=== PATIENT | male | born 1960 | race Caucasian/White ===

== ENCOUNTER 2025-05-12 17:50 | Inpatient (IN) | payer OTHER ==
[~2025-05-12] VITALS: Ht 182.8 cm; Wt 85.8 kg
[2025-05-12 18:25] VITALS: BP 152/90
[2025-05-12 18:32] LABS: BASO # 0.0 10*3/uL (0.0-0.1); BASO % 0.3 % (0.0-1.0); EOS # 0.3 10*3/uL (0.0-0.4); EOS % 2.4 % (1.0-4.0); MEAN CELL VOLUME 93.8 fl (80.0-94.0); MEAN CORPUSCULAR HGB 31.2 pg (27.0-31.0); MEAN PLATELET VOLUME 11.6 fl (9.6-12.3); MONO # 0.6 10*3/uL (0.1-1.0); MONO % 5.8 % (3.0-9.0); NEUT # 8.3 10*3/uL (2.3-7.9); NEUT % 76.2 % (47.0-73.0); NUCLEATED RED BLOOD CELL 0.0 % (0.0-0.0); NUCLEATED RED BLOOD CELL 0.0 10*3/uL (0.0-0.0); PLATELET COUNT AUTOMATED 170 10*3/uL (130-400); RED CELL DISTRI WIDTH 14.4 % (0-14.5)
[2025-05-12 18:54] LABS: BILIRUBIN 2+ (Negative); BLOOD Negative (Negative); CLARITY Clear (Clear); COLOR Dark Yellow (Yellow); KETONE 3+ (Negative); LEUKO ESTERASE 1+ (Negative); NITRITE Negative (Negative); PH 6.0 (4.5-8.0); SPECIFIC GRAVITY 1.025 (1.001-1.030); UROBILINOGEN 1.0 E.U./dl (0.0-1.0)
[2025-05-12 19:00] LABS: BUN 14 mg/dl (9-23)
[2025-05-12 19:01] LABS: URINE AMPHETAMINES Negative (1000ng/ml); URINE BARBITURATES Negative (200ng/ml); URINE BENZODIAZEPINES Negative (200ng/ml); URINE CANNABINOIDS (THC) Negative (50ng/ml); URINE COCAINE Negative (300ng/ml); URINE METHADONE Negative (300ng/ml); URINE OPIATES Negative (300ng/ml); URINE PHENCYCLIDINE Negative (25ng/ml)
[2025-05-12 19:05] LABS: ETHYL ALCOHOL < 3.0 mg/dl (<3)
[2025-05-12 19:12] LABS: CALCIUM OXALATE CRYSTALS 2+; RBC 0-2 rbc/hpf (0-2)
[2025-05-12 19:13] LABS: BACTERIA 2+; HYALINE CAST 31-40
[2025-05-12] MEDS ORDERED: SODIUM CHLORIDE 0.9% 1,000 ML IV ONE (19:35)
[2025-05-12] MEDS ORDERED: ALLOPURINOL100 MG PO (20:31)
[2025-05-12] MEDS ORDERED: NORVASC2.5 MG PO (20:32)
[2025-05-12] MEDS ORDERED: CALCIUM500 M1 PO (20:34)
[2025-05-12] MEDS ORDERED: Depakote500 MG PO (20:39)
[2025-05-12] MEDS ORDERED: PEPCID20 MG PO (20:40)
[2025-05-12] MEDS ORDERED: VITAMIN D250 MC1 PO (20:40)
[2025-05-12] MEDS ORDERED: LITHIUM CARBON450 M1 PO (20:41)
[2025-05-12] MEDS ORDERED: FLONASE ALLERG9.9 ML NAS (20:41)
[2025-05-12] MEDS ORDERED: NAMENDA-5 PO (20:42)
[2025-05-12] MEDS ORDERED: RENAL VITAMIN0.8 MG PO (20:42)
[2025-05-12] MEDS ORDERED: RIVASTIGMINE TAR6 M1 PO (20:43)
[2025-05-12] MEDS ORDERED: Ondansetron4 MG PO (20:44)
[2025-05-12] MEDS ORDERED: DIPHENHYDRAMINE25 M7 PO (20:45)
[2025-05-12] MEDS ORDERED: STERILE WATER 110 ML IM (20:46)
[2025-05-12] MEDS ORDERED: GEODON20 MG/1 ML IM (20:46)
[2025-05-12] MEDS ORDERED: VISTARIL25 MG PO (20:47)
[2025-05-12] MEDS ORDERED: VISTARIL25 MG IM (20:49)
[2025-05-12] MEDS ORDERED: ATIVAN1 MG PO (20:50)
[2025-05-12] MEDS ORDERED: ACETAMINOPHEN 325 MG TAB PO PRN (21:10)
[2025-05-12] MEDS ORDERED: MG-AL HYDROXIDE/SIMETICONE 30 ML UDC PO PRN (21:10)
[2025-05-12] MEDS ORDERED: Menthol/Zinc Oxide 4 GM THIN T PRN (21:30)
[2025-05-12] MEDS ORDERED: LORazepam 1 MG TAB PO PRN (21:30)
[2025-05-12] MEDS ORDERED: Water, Sterile 10 ML VIAL IM PRN (21:30)
[2025-05-12 21:54] VITALS: BP 103/66
[2025-05-12] MEDS ORDERED: CALCIUM (OSCAL) 500MG PO PRN (22:25)
[2025-05-12] MEDS ORDERED: Ondansetron Hydrochloride 4 MG TAB PO PRN (22:30)
[2025-05-13 06:09] LABS: BASO # 0.0 10*3/uL (0.0-0.1); BASO % 0.2 % (0.0-1.0); EOS # 0.2 10*3/uL (0.0-0.4); EOS % 2.2 % (1.0-4.0); MEAN CELL VOLUME 91.7 fl (80.0-94.0); MEAN CORPUSCULAR HGB 30.9 pg (27.0-31.0); MEAN PLATELET VOLUME 12.0 fl (9.6-12.3); MONO # 0.7 10*3/uL (0.1-1.0); MONO % 7.9 % (3.0-9.0); NEUT # 6.6 10*3/uL (2.3-7.9); NEUT % 72.1 % (47.0-73.0); NUCLEATED RED BLOOD CELL 0.0 % (0.0-0.0); NUCLEATED RED BLOOD CELL 0.0 10*3/uL (0.0-0.0); PLATELET COUNT AUTOMATED 151 10*3/uL (130-400); RED CELL DISTRI WIDTH 14.3 % (0-14.5)
[2025-05-13 06:20] LABS: BUN 15 mg/dl (9-23); LDL CHOLESTEROL 41 mg/dL (9-159)
[2025-05-13 07:10] LABS: VITAMIN D, 25-HYDROXY 70.8 ng/mL (30-100)
[2025-05-13 08:00] VITALS: BP 115/75
[2025-05-13] MEDS ORDERED: Vitamin B Complex and Vitami4 1 TAB TAB PO SCH (09:00)
[2025-05-13] MEDS ORDERED: FLUTICASONE PROPIONATE Nasal 16 Gm spray NAS SCH (09:00)
[2025-05-13] MEDS ORDERED: FAMOTIDINE 20 MG TAB PO SCH (09:00)
[2025-05-13] MEDS ORDERED: DIVALPROEX ER 500 MG TAB PO SCH (09:00)
[2025-05-13] MEDS ORDERED: Cholecalciferol 2,000 UNIT TABLET (50 MCG) PO SCH (09:00)
[2025-05-13] MEDS ORDERED: LITHIUM CARBONATE 450 MG TAB PO SCH (09:00)
[2025-05-13 20:00] VITALS: BP 116/90
[2025-05-13] MEDS ORDERED: DIVALPROEX SODIUM 125 MG CAP PO SCH (21:00)
[2025-05-14 07:19] LABS: BUN 10 mg/dl (9-23); SGPT/ALT 21 U/L (5-49)
[2025-05-14 08:00] VITALS: BP 106/69
[2025-05-14] MEDS ORDERED: LITHIUM CARBONATE 450 MG TAB PO SCH (09:00)
[2025-05-14] MEDS ORDERED: SODIUM CHLORIDE 0.9% 500 ML IV ONE (13:00)
[2025-05-14 20:00] VITALS: BP 115/78
[2025-05-15 08:00] VITALS: BP 123/73
[2025-05-15] MEDS ORDERED: ALLOPURINOL 100 MG TAB PO SCH (10:00)
[2025-05-15 20:00] VITALS: BP 134/83
[2025-05-16 08:00] VITALS: BP 119/70
[2025-05-16 20:40] VITALS: BP 122/75
[2025-05-16] MEDS ORDERED: Mirtazapine 15 MG TAB PO SCH (21:00)
[2025-05-17 09:07] VITALS: BP 98/74
[2025-05-17 20:00] VITALS: BP 122/72
[2025-05-18 07:50] VITALS: BP 134/86
[2025-05-18 20:00] VITALS: BP 123/88
[2025-05-18] MEDS ORDERED: DIVALPROEX (DR) 500 MG TAB PO SCH (21:00)
[2025-05-19 08:00] VITALS: BP 109/80
[2025-05-19 20:00] VITALS: BP 108/88
[2025-05-20 08:00] VITALS: BP 110/57
[2025-05-20] MEDS ORDERED: DIVALPROEX SODIUM 125 MG CAP PO SCH (09:00)
[2025-05-20 20:00] VITALS: BP 113/80
[2025-05-21 06:23] LABS: BASO # 0.0 10*3/uL (0.0-0.1); BASO % 0.2 % (0.0-1.0); EOS # 0.5 10*3/uL (0.0-0.4); EOS % 4.6 % (1.0-4.0); MEAN CELL VOLUME 95.1 fl (80.0-94.0); MEAN CORPUSCULAR HGB 31.7 pg (27.0-31.0); MEAN PLATELET VOLUME 11.6 fl (9.6-12.3); MONO # 1.0 10*3/uL (0.1-1.0); MONO % 9.8 % (3.0-9.0); NEUT # 7.2 10*3/uL (2.3-7.9); NEUT % 69.6 % (47.0-73.0); NUCLEATED RED BLOOD CELL 0.0 % (0.0-0.0); NUCLEATED RED BLOOD CELL 0.0 10*3/uL (0.0-0.0); PLATELET COUNT AUTOMATED 144 10*3/uL (130-400); RED CELL DISTRI WIDTH 15.1 % (0-14.5)
[2025-05-21 06:31] LABS: BUN 18 mg/dl (9-23); SGPT/ALT 23 U/L (5-49); VALPROIC ACID (DEPAKENE) 80.1 ug/ml (50-100)
[2025-05-21 08:31] VITALS: BP 89/54
[2025-05-21 20:00] VITALS: BP 119/72
[2025-05-22 08:00] VITALS: BP 131/86
[2025-05-22 20:00] VITALS: BP 131/81
[2025-05-23 08:00] VITALS: BP 100/70
[2025-05-23 20:00] VITALS: BP 95/78
[2025-05-24] MEDS ORDERED: MIRTAZAPINE15 M2 PO (10:55)
[2025-05-24] MEDS ORDERED: DIVALPROEX SOD125 M1 PO (10:55)
[2025-05-24] MEDS ORDERED: RIVASTIGMINE TAR6 M1 PO (10:55)
[2025-05-24] MEDS ORDERED: RISPERIDONE M-0.5 MG OGT (10:55)
[2025-05-24] MEDS ORDERED: MEMANTINE HCL10 MG PO (10:55)
[2025-05-24] MEDS ORDERED: DEPAKOTE SPRIN125 MG PO (11:14)
== END 2025-05-24 11:27 | DRG 761 ==
LOC: ED 17:50 → 3N 20:17
PROVIDERS: Counselor Professional; Nurse Practitioner Family; Nurse Practitioner Women's Health; ADMIT Psychiatry & Neurology Psychiatry; ATTEND Psychiatry & Neurology Psychiatry
PROC: GZHZZZZ Group Psychotherapy (ICD-10-PCS; principal; 2025-05-13)
PROC: GZ51ZZZ Individual Psychotherapy, Behavioral (ICD-10-PCS; 2025-05-13)
DX: F25.1 Schizoaffective disorder, depressive type (principal); N39.0 Urinary tract infection, site not specified; D72.828 Other elevated white blood cell count; E87.6 Hypokalemia; F41.9 Anxiety disorder, unspecified; F39 Unspecified mood [affective] disorder; F03.90 Unspecified dementia, unspecified severity, without behavioral disturbance, psychotic disturbance, mood disturbance, and anxiety; Z88.8 Allergy status to other drugs, medicaments and biological substances; F32.9 Major depressive disorder, single episode, unspecified